=== PATIENT | female | born 1995 | race Caucasian/White ===

== ENCOUNTER 2024-07-13 12:33 | Emergency (ER) | payer MEDICAID ==
[~2024-07-13] VITALS: Ht 157.5 cm; Wt 49.9 kg
[2024-07-13 13:50] VITALS: BP 126/75; TEMP 97.8; O2SAT 97
== END 2024-07-13 16:29 | disposition left against medical advice (07) ==
LOC: ER 12:45
DX: F10.129 Alcohol abuse with intoxication, unspecified (principal); M25.511 Pain in right shoulder; Z53.21 Procedure and treatment not carried out due to patient leaving prior to being seen by health care provider